=== PATIENT | female | born 1990 | race Caucasian/White ===

== ENCOUNTER 2017-12-04 10:21 | Inpatient (IN) | payer BC ==
[2017-12-04 10:50] VITALS: BMI 29.7
--- NOTE | 2017-12-04 11:49 | PDOC.LDHP ---
Labor and Delivery H&P Chief complaint: contractions HPI: 26 yo G1 presents c/o UCs since early this AM. Current gestational age (weeks): 39 Due date: 12/08/17 Dating criteria: last menstrual period, first trimester ultrasound Grav: 1 Para: 0 OB History Details: Uncomplicated PNC with Dr. Stearns Current complications: none Abnormal US findings: No Past Medical History: none Current medications: pre-melissa vitamins Previous surgical history: none Allergies/Adverse Reactions: Allergies Allergy/AdvReac Type Severity Reaction Status Date / Time Penicillins Allergy Verified 12/04/17 10:44 Social history: none - Physical Exam Vital signs reviewed and normal: yes General: NAD Heart: RRR Lungs: CTAB Abdomen: gravid Extremeties: trace edema FHT: category 1 [place] contractions every: q 3-4 mins - Vaginal Exam Effacement: 90% - OB Labs Blood type: O RH: positive Antibody Screen: negative HIV: negative RPR: negative HEPSAg: negative 1 hour GCT: negative GBS: negative Rubella: immune - Assessment Term IUP in early labor - Plan Plan: admit to L&D -: Dr. Stearns notified
[2017-12-04] MEDS ORDERED: Lidocaine 1% (PF) 30 ML VIAL SC PRN (11:50)
[2017-12-04] MEDS ORDERED: Ondansetron HCl/PF 4 MG/2 ML Vial IVP PRN (11:50)
[2017-12-04] MEDS ORDERED: LR / Pitocin 40 units/1000 ml 1,000 ML IV PRN (11:50)
[2017-12-04] MEDS ORDERED: Promethazine HCl 25 MG/ML VIAL IM PRN (11:50)
[2017-12-04] MEDS ORDERED: Ibuprofen 800 MG TAB PO PRN (11:50)
[2017-12-04] MEDS ORDERED: Acetaminophen/Codeine 30-300mg Tablet PO PRN ×3 (11:50→18:43)
[2017-12-04] MEDS: Lactated Ringer's 1,000 ML IV SCH ×3 (12:00→14:39)
[2017-12-04] MEDS ORDERED: LR 500 ML/Oxytocin 10 units 500 ML IV SCH (12:00)
[2017-12-04] MEDS ORDERED: Bupivacaine 0.5% 20 ML, Fentanyl 400 MCG in Sodium Chloride 0.9% 72 ML EPIDURAL SCH (12:15)
[2017-12-04 12:35] LABS: Hemoglobin 13.9 g/dL (12.0-16.0); Mean Corpuscular HGB CONC 34.2 g/dL (32.0-36.0); Mean Corpuscular Hemoglobin 31.5 pg (27.0-31.0); Mean Corpuscular Volume 91.9 fl (81.0-99.0); Mean Platelet Volume 6.6 fL (7.4-10.4); Platelet Count 187 thou/uL (130-400); RBC Distribution Width 11.7 % (11.5-14.5); White Blood Cell (WBC) Count 12.7 thou/uL (4.8-10.8)
--- NOTE | 2017-12-04 13:12 | PDOC.LDPN ---
Labor & Delivery Progress Note - Subjective Subjective: painful contractions - Objective Vital signs reviewed and normal: yes General: resting, breathing through contractions Uterine fundus: non tender Dilation: 5 Effacement: 90% Station: -1 FHT: category 1 [place] contractions every: 3 AROM: clear fluid - Assessment (1) 39 weeks gestation of Code(s): Z3A.39 - 39 WEEKS GESTATION OF Current Visit: Yes Status : Acute (2) Active labor at term Code(s): UTY2733 - Current Visit: Yes Status: Acute Plan: continue plan of care
[2017-12-04 13:18] LABS: HBSAg Index 0.15 S/CO (0-0.99); Hep B Surf Ag Non-Reactive S/CO (NonReactive); Syphilis Antibody Nonreactive (Nonreactive); Syphilis Antibody Index 0.05 S/CO (<1.00 Non-Reactive)
[2017-12-04] MEDS ORDERED: Lidocaine 1% (PF) 30 ML VIAL ONE (13:35)
[2017-12-04] MEDS: LR 500 ML/Oxytocin 10 units 500 ML IV SCH (14:45)
[2017-12-04] MEDS ORDERED: HYDROcodone/Acetaminophen 5/325 mg Tablet PO PRN (18:43)
[2017-12-04] MEDS ORDERED: Milk Of Magnesia 30 ML UDCUP PO PRN (18:43)
[2017-12-04] MEDS ORDERED: Bisacodyl 10 MG SUPP PR PRN (18:43)
[2017-12-04] MEDS ORDERED: LR / Pitocin 40 units/1000 ml 1,000 ML IV SCH (18:45)
[2017-12-04] MEDS: Ibuprofen 800 MG TAB PO SCH (22:20)
[2017-12-04] MEDS: Docusate Calcium (SURFAK) 240 MG CAP PO SCH (22:20)
[2017-12-05] MEDS ORDERED: Lanolin Ointment 7 GM TUBE TOP PRN (02:32)
[2017-12-05] MEDS ORDERED: Benzocaine/Menthol 20-0.5% 60 ML CAN TOP PRN (02:32)
[2017-12-05 06:13] LABS: Mean Corpuscular HGB CONC 34.7 g/dL (32.0-36.0); Mean Corpuscular Hemoglobin 31.9 pg (27.0-31.0); Mean Platelet Volume 6.8 fL (7.4-10.4); Platelet Count 154 thou/uL (130-400); RBC Distribution Width 11.5 % (11.5-14.5); Red Blood Cell (RBC) Count 3.45 mill/uL (4.20-5.40)
[2017-12-05] MEDS: Ibuprofen 800 MG TAB PO SCH ×3 (06:16→21:30)
[2017-12-05] MEDS ORDERED: Adacel (T-DAP) 0.5 ML VIAL IM ONE (09:00)
[2017-12-05] MEDS: Ferrous Sulfate 325 MG TAB PO SCH ×2 (09:12→19:19)
[2017-12-05] MEDS: Docusate Calcium (SURFAK) 240 MG CAP PO SCH ×2 (09:13→21:30)
--- NOTE | 2017-12-05 11:23 | PDOC.PP ---
Post Progress Note Post Day #: 1 Subjective: doing well, request LC, min lochia and discomfort PO intake tolerated: yes Flatus: yes Ambulation: yes Vital Signs (12 hours) Temp Pulse Resp BP Pulse Ox 12/05/17 08:00 97.6 F 79 18 12/05/17 07:49 97.6 F 79 18 105/59 L 95 12/05/17 05:00 98.0 F 71 18 114/55 L 12/05/17 00:00 98.0 F 77 18 113/63 Weight Weight 173 lb - Physical Examination General: NAD Respiratory: non-labored breathing Fundus firm & at: below umb Extremities: negative homans (B) Skin: no rash Neurological: no gross focal deficits Psychiatric: A&Ox3, normal affect Result Diagrams: 12/05/17 05:40 Additional Labs: Post Labs Blood Type O POSITIVE 12/04/17 12:20 Hep Bs Antigen Non-Reactive S/CO (NonReactive) 12/04/17 12:20 (1) 39 weeks gestation of Code(s): Z3A.39 - 39 WEEKS GESTATION OF Status: Acute (2) Active labor at term Code(s): ZAZ8001 - Status: Acute - Assessment/Plan A?P: PPD sp @ term. Likely DC tomorrow.
[2017-12-05] MEDS: Lactated Ringer's 1,000 ML IV SCH ×3 (19:18→22:44)
[2017-12-05] MEDS: LR 500 ML/Oxytocin 10 units 500 ML IV SCH (19:18)
[2017-12-05 21:58] VITALS: TEMP 98.1
[2017-12-06] MEDS: Ibuprofen 800 MG TAB PO SCH (06:24)
[2017-12-06] MEDS: Ferrous Sulfate 325 MG TAB PO SCH (07:07)
[2017-12-06] MEDS: Docusate Calcium (SURFAK) 240 MG CAP PO SCH (08:33)
--- NOTE | 2017-12-06 08:34 | PDOC.PP ---
Post Progress Note Post Day #: 2 PO intake tolerated: yes Flatus: yes Ambulation: yes Weight Weight 173 lb - Physical Examination General: NAD Cardiovascular: RRR Respiratory: non-labored breathing Abdominal: no distention, appropriately TTP Fundus firm & at: umb-2 Skin: no rash Neurological: no gross focal deficits Psychiatric: normal affect Result Diagrams: 12/05/17 05:40 Additional Labs: Post Labs Blood Type O POSITIVE 12/04/17 12:20 Hep Bs Antigen Non-Reactive S/CO (NonReactive) 12/04/17 12:20 (1) Vaginal delivery Code(s): O80 - ENCOUNTER FOR FULL-TERM UNCOMPLICATED DELIVERY Status: Acute - Assessment/Plan VSSAF Doing well, no issues PP Rh pos RImm DC home FU 6 wk
[2017-12-06 09:14] VITALS: BP 125/64
[2017-12-06] MEDS: Lactated Ringer's 1,000 ML IV SCH (12:10)
--- NOTE | 2017-12-07 14:19 | DIS ---
ADMISSION DIAGNOSES: 1. Intrauterine at 39 weeks. 2. Early labor. DISCHARGE DIAGNOSIS: Status post term spontaneous vaginal delivery. DISCHARGE CONDITION: Stable. ATTENDING PHYSICIAN: Valeria Saba M.D. CONSULTATIONS: None. PROCEDURES: Spontaneous vaginal delivery. HISTORY AND PHYSICAL EXAMINATION: Please see previously dictated H&P. HOSPITAL COURSE: A 26-year-old , presented at 39 weeks and was found to be in early labor. She had Pitocin augmentation and went on to deliver a viable male infant weighing 6 pounds 15 ounces wit h Apgars of 9 and 9 with a second degree laceration repaired. she did well. She had norm al lochia. Vital signs remain within normal limits and the patient was and had a lacta tion consult in house. She was Rh positive and rubella immune. She was discharged home in stable co ndition on day #2 and given instructions to follow up in 6 weeks' time. She has no labs o r studies pending at the time of discharge.
--- NOTE | 2017-12-25 17:23 | DN ---
DATE OF DELIVERY: 12/04/2017 REGULAR RECREATION LEADER: Dr. Felix Stearns. DELIVERING PHYSICIAN: Dominic Roldan M.D. PROCEDURE: Ms. Marr is a 26-year-old , now at 39 weeks, who has been admitted in labor. A s pontaneous vaginal delivery of a male infant with Apgars 9 and 9 over a small second-degree laceratio n was performed. The placenta was delivered intact. She was repaired with a 2-0 chromic in layers. There was a single loose nuchal cord at the time of delivery. Both mom and baby did well and will r ecover in Labor and Delivery.
== END 2017-12-06 12:15 | disposition home or self-care (01) | DRG 775 ==
LOC: L&D/OP 10:21 → L&D 12:13 → 3SW 21:24
PROVIDERS: ADMIT Obstetrics & Gynecology; ATTEND Obstetrics & Gynecology
PROC: 10E0XZZ Delivery of Products of Conception, External Approach (ICD-10-PCS; principal; 2017-12-04)
PROC: 0KQM0ZZ Repair Perineum Muscle, Open Approach (ICD-10-PCS; 2017-12-04)
DX: O99.344 Other mental disorders complicating childbirth (principal); F32.9 Major depressive disorder, single episode, unspecified; F41.9 Anxiety disorder, unspecified; Z3A.39 39 weeks gestation of pregnancy; Z37.0 Single live birth; Z88.0 Allergy status to penicillin; O70.1 Second degree perineal laceration during delivery; O69.81X0 Labor and delivery complicated by cord around neck, without compression, not applicable or unspecified
CPT/HCPCS: 36415; 51702; 85027; 86780; 86850; 86900; 86901; 87340; 99285; J0595; J2001; J2405; J3010; J3490; J7050; J7120